=== PATIENT | male | born 1990 | race Caucasian/White ===

== ENCOUNTER 2019-03-26 12:40 | Emergency (ER) | payer BC ==
[2019-03-26] MEDS ORDERED: Sodium Chloride 0.9% 10 ML Syringe FLUSH PRN (12:50)
[2019-03-26] MEDS ORDERED: Sodium Chloride 0.9% 1,000 ML IV ONE ×2 (12:55→13:45)
[2019-03-26] MEDS ORDERED: Ondansetron 4 MG/2 ML SDV IV ONE (13:11)
[2019-03-26] MEDS ORDERED: Pantoprazole 40 MG Vial IVPUSH ONE (13:12)
[2019-03-26 13:22] LABS: ANION GAP 15.1; CHLORIDE,CL 105 mmol/L (101-111); SODIUM,NA 140 mmol/L (135-145)
[2019-03-26] MEDS ORDERED: Octreotide 100 MCG/ML SDV IVPUSH ONE (13:45)
[2019-03-26] MEDS ORDERED: Octreotide 500 MCG in Sodium Chloride 0.9% 250 ML IV SCH (14:00)
--- NOTE | 2019-03-26 14:10 | EDM.PDOC ---
Scribed by Yane Gregg 03/26/19 [id number] for Devika Perales NP ED HPI GENERAL MEDICAL PROBLEM - General Chief Complaint: Gastrointestinal Problem Stated Complaint: vomiting blood 3 hrs Time Seen by Provider: 03/26/19 13:00 Source of Information: Reports: Patient, RN, RN Notes Reviewed History Limitations: Reports: No Limitations - History of Present Illness INITIAL COMMENTS - FREE TEXT/NARRATIVE: Patient presented to ER after he vomited x2 blood. (First was bright and second was dark) this a.m. pain around rib cage comes and goes. No ulcers. He head ETOH last night, but not regularly. "Heartburn" yesterday took Tums good relief. He has pain to right lower back/flank area. Attempted Tylenol this a.m. but vomited. Onset: Today Duration: Constant Location: Reports: Abdomen Quality: Reports: Ache Severity: Moderate Improves with: Reports: None Worsens with: Reports: None Associated Symptoms: Reports: No Other Symptoms Abdominal Pain Score (Numeric/FACES): 4 - Related Data Allergies Allergy/AdvReac Type Severity Reaction Status Date / Time amoxicillin Allergy Cannot Verified 03/26/19 12:51 Remember Home Meds: Home Meds Adalimumab [Humira] 03/26/19 [History] Past Medical History Gastrointestinal History: Reports: Other (See Below) (IBS) Musculoskeletal History: Reports: Arthritis (psoriatic) ED ROS GENERAL - Review of Systems Review Of Systems: ROS reveals no pertinent complaints other than HPI. ED EXAM, GI/ABD - Physical Exam Exam: See Below Exam Limited By: No Limitations General Appearance: Alert, WD/WN, No Apparent Distress Eyes: Bilateral: Normal Appearance Ears: Normal External Exam, Normal Canal, Hearing Grossly Normal, Normal TMs Nose: Normal Inspection, Normal Mucosa, No Blood Throat/Mouth: Normal Inspection, Normal Lips, Normal Teeth, Normal Gums, Normal Oropharynx, Normal Voice, No Airway Compromise Head: Atraumatic, Normocephalic Neck: Normal Inspection, Supple, Non-Tender, Full Range of Motion Respiratory/Chest: No Respiratory Distress, Lungs Clear, Normal Breath Sounds, No Accessory Muscle Use, Chest Non-Tender Cardiovascular: Normal Peripheral Pulses, Regular Rate, Rhythm, No Edema, No Gallop, No JVD, No Murmur, No Rub GI/Abdominal Exam: Normal Bowel Sounds, Soft, Non-Tender, No Organomegaly, No Distention, No Abnormal Bruit, No Mass, Pelvis Stable (Male) Exam: Deferred, Testicular Tenderness (L) Rectal (Males) Exam: Deferred Back Exam: Normal Inspection, Full Range of Motion, NT Extremities: Normal Inspection Neurological: Alert, Oriented, CN II-XII Intact, Normal Cognition, Normal Gait, Normal Reflexes, No Motor/Sensory Deficits Psychiatric: Normal Affect, Normal Mood Skin Exam: Warm, Dry, Intact, Normal Color, No Rash Lymphatic: No Adenopathy Course - Vital Signs Last Recorded V/S: Last Vital Signs Temp 98.7 F 03/26/19 12:52 Pulse 83 03/26/19 12:52 Resp 16 03/26/19 12:52 BP 130/79 03/26/19 12:52 Pulse Ox 96 03/26/19 12:52 - Orders/Labs/Meds Orders: Active Orders 24 hr Category Date Time Status Peripheral IV Care [RC] . DIRECTED Care 03/26/19 12:50 Active Peripheral IV Insertion Adult [OM.PC] Stat Oth 03/26/19 12:50 Ordered Labs: Laboratory Tests 03/26/19 03/26/19 Range/Units 12:58 12:58 WBC 11.8 H (5.0-10.0) 10^3/uL RBC 4.51 L (4.6-6.2) 10^6/uL Hgb 14.6 (14.0-18.0) g/dL Hct 40.5 (40.0-54.0) % MCV 89.8 (80-100) fL MCH 32.4 (27.0-34.0) pg MCHC 36.0 H (33.0-35.0) g/dL Plt Count 204 (150-450) 10^3/uL Neut % (Auto) 79.3 H (42.2-75.2) % Lymph % (Auto) 15.1 L (20.5-50.1) % [place] % (Auto) 4.5 (2-8) % Eos % (Auto) 0.8 L (1.0-3.0) % Baso % (Auto) 0.3 (0.0-1.0) % Sodium 140 (135-145) mmol/L Potassium 4.1 (3.6-5.0) mmol/L Chloride 105 (101-111) mmol/L Carbon Dioxide 24.0 (21.0-31.0) mmol/L Anion Gap 15.1 BUN 16 (7-18) mg/dL Creatinine 0.8 (0.6-1.3) mg/dL Est Cr Clr Drug Dosing TNP Estimated GFR (MDRD) > 60 BUN/Creatinine Ratio 20.00 Glucose 97 (74-105) mg/dL Calcium 9.0 (8.4-10.2) mg/dl Total Bilirubin 0.6 (0.2-1.0) mg/dL AST 23 (10-42) IU/L ALT 24 (10-60) IU/L Alkaline Phosphatase 38 L (42-121) IU/L Total Protein 8.0 (6.7-8.2) g/dl Albumin 4.7 (3.2-5.5) g/dl Globulin 3.3 Albumin/Globulin Ratio 1.42 Meds: Medications Discontinued Medications Generic Name Dose Route Start Last Admin Trade Name Freq PRN Reason Stop Dose Admin Sodium Chloride 1,000 mls @ 999 mls/hr 03/26/19 12:55 03/26/19 13:03 Normal Saline IV 03/26/19 13:55 999 mls/hr .BOLUS ONE Administration Sodium Chloride 1,000 mls @ 150 mls/hr 03/26/19 13:45 03/26/19 14:06 Normal Saline IV 03/26/19 20:24 150 mls/hr .BOLUS ONE Administration Octreotide Acetate 500 mcg/ 255 mls @ 12.5 mls/hr 03/26/19 14:00 03/26/19 14: 05 Sodium Chloride IV 12.5 mls/hr ASDIRECTED JUAN CARLOS Administration Metoclopramide HCl 10 mg 03/26/19 14:11 03/26/19 14:15 Reglan IVPUSH 03/26/19 14:12 10 mg ONETIME ONE Administration Octreotide Acetate 50 mcg 03/26/19 13:45 03/26/19 14:05 Sandostatin IVPUSH 03/26/19 13:46 50 mcg ONETIME ONE Administration Ondansetron HCl 4 mg 03/26/19 13:11 03/26/19 13:24 Zofran IV 03/26/19 13:12 4 mg ONETIME ONE Administration Pantoprazole Sodium 80 mg 03/26/19 13:12 03/26/19 13:24 Protonix Iv IVPUSH 03/26/19 13:13 80 mg .BOLUS ONE Administration Sodium Chloride 10 ml 03/26/19 12:50 03/26/19 13:03 Saline Flush FLUSH 10 ml ASDIRECTED PRN Administration Keep Vein Open - Re-Assessments/Exams Free Text/Narrative Re-Assessment/Exam: 03/26/19 15:[address] Bray at the [facility]. He states they do not have GI services this weekend and would recommend the pt be transferred elsewhere where GI services are available. 03/26/19 15:[address] Anton at [facility] in [place] who agreed to accept the patient for transfer. Departure - Departure Time of Disposition: 14:58 Disposition: DC/Tfer to [facility] 02 Condition: Fair Clinical Impression: Abdominal pain, Upper GI bleed, Psoriatic arthritis - Discharge Information *PRESCRIPTION DRUG MONITORING PROGRAM REVIEWED*: No *COPY OF PRESCRIPTION DRUG MONITORING REPORT IN PATIENT CHRISTIAN: No Referrals: PCP,None [Primary Care Provider] - Forms: ED Department Discharge, Interfacility Transfer EMTALA - My Orders Last 24 Hours: My Active Orders 03/26/19 12:50 Peripheral IV Care [RC] . DIRECTED Peripheral IV Insertion Adult [OM.PC] Stat - Assessment/Plan Last 24 Hours: My Active Orders 03/26/19 12:50 Peripheral IV Care [RC] . DIRECTED Peripheral IV Insertion Adult [OM.PC] Stat I have read and agree with the documentation that has been completed regarding this visit. By signing this record, I attest that the documentation was completed in my physical presence and is an accurate record of the encounter.
[2019-03-26] MEDS ORDERED: Metoclopramide 10 MG/2 ML SDV IVPUSH ONE (14:11)
== END 2019-03-26 14:51 ==
LOC: DL.ED 12:40
DX: K92.2 Gastrointestinal hemorrhage, unspecified (principal); L40.50 Arthropathic psoriasis, unspecified; Z88.1 Allergy status to other antibiotic agents
CPT/HCPCS: 36415; 80053; 85025; 96361; 96365; 96375; 96376; 99285; C9113; J2354; J2405; J2765; J7030; J7050